=== PATIENT | male | born 1950 | race Caucasian/White ===

== ENCOUNTER → 2019-11-06 | Outpatient (CLI) | payer OTHER ==
--- NOTE | 2019-11-16 18:15 | PF ---
[address] [address] PULMONARY FUNCTION REPORT Name: ARSENIO SOMMER Room: [facility]#: [id number] Admission: 11/06/19 Attend Phys: Arsenio Olson MD Discharge: Date of : 48 Report #: [id number] THIS REPORT FOR: //name// CC: Arsenio Chapakynicol DATE OF SERVICE: 11/06/2019 The FEV1/FVC ratio is decreased to 61% with a forced vital capacity normal at 86% with the FEV1 decreased to 72%. The [id number] is also decreased to 45%. After the administration of a bronchodilator, there is no significant increase in any of these values. The patient's post-bronchodilator FEV1 is noted to be 2.56 liters. Only a spirometry was performed. IMPRESSION: Moderate obstruction without evidence of reversibility. <ELECTRONICALLY SIGNED> By: Adair Connor MD 11/16/19 1815 1915 Jose Connor MD /nt
== END ==
LOC: M.PUL 11-04 09:00
PROVIDERS: ATTEND Orthopaedic Surgery
DX: J45.998 Other asthma (principal)